=== PATIENT | female | born 1940 | race Caucasian/White ===

== ENCOUNTER → 2020-06-10 | Outpatient (CLI) | payer BC ==
[~2020-06-10] MED LIST: DUONEB 2.5-0.5 M3 ML INH; LEVAQUIN 250 M250 MG PO; LIPITOR10 MG PO; LISINOPRIL-HCT1 EACH PO; MILK OF MA2400 MG/10 PO; OMEPRAZOLE10 MG PO; ULTRAM 50MG TAB50 MG PO; VITAMIN B-121000 MCG PO; XARELTO10 MG PO; ZANTAC 150MG T150 MG PO; ZOLOFT25 MG PO
== END ==
LOC: M.RAD 10:44
PROVIDERS: ATTEND Family Medicine
DX: Z12.31 Encounter for screening mammogram for malignant neoplasm of breast (principal); N63.10 Unspecified lump in the right breast, unspecified quadrant

== ENCOUNTER → 2021-08-09 | Outpatient (CLI) | payer BC | LOC: M.RAD 10:31 | PROVIDERS: ATTEND Family Medicine | DX: Z12.31 Encounter for screening mammogram for malignant neoplasm of breast (principal) ==